=== PATIENT | female | born 1945 | race African-American/Black ===

== ENCOUNTER 2016-09-29 01:25 | Observation (INO) | payer MEDICARE, MEDICAID ==
[2016-09-29] VITALS (11 sets, daily range): BP systolic 133–187; BP diastolic 73–93; PULSE 49–61; RESP 18–22; TEMP 96.5–98.9; O2SAT 95–100
[~2016-09-29] VITALS: Ht 157.5 cm; Wt 100.0 kg
[~2016-09-29 01:25] MED LIST: ENAL20TA81 PO; FURO1TAB93 PO; IBUP400T20 PO; LEVO300T6 PO; LEXA20TA PO; LORT5TAB PO; NIFE1TAB85 PO; PIOG45 PO; RANI150 PO; VIST25CA PO; ZOCO40TA PO; [UNRECOGNIZED DRUG - REMARK]
[2016-09-29] MEDS ORDERED: SODIUM CHLORID 0.9% 500 ML INJ 500 ML IV ONE (01:45)
[2016-09-29] MEDS ORDERED: SODIUM CHLORIDE 0.9% FLUSH 10 ML FLUSH IVF PRN (01:45)
[2016-09-29] MEDS: NITROGLYCERIN 0.4 MG SL 25 TABS/BTL SL SCH ×4 (01:50→03:23)
--- NOTE | 2016-09-29 02:33 | PD ---
HPI Chief Complaint: Chest Pain Time Seen by Provider: 01:32 Travel History International Travel<30 days: No Contact w/Intl Traveler<30days: No Traveled to known affect area: No History of Present Illness HPI Patient is a 70-year-old female with history of hypertension, diabetes, hyperlipidemia, CVA with multiple complaints, patient reports that she has been having chest pain, reports that her chest pain goes from her left chest up to her neck. Patient reports that she does feel short of breath with her symptoms , she has had similar symptoms in the past. Patient reports that she is also having headache with her chest pain. Patient denies that this is the worst headache of her life and reports headache as mild and diffuse. Patient reports no vision changes or headache. Patient with no fevers or chills. Patient also with complaints of right foot pain, reports that she fell about one week ago and has pain to her right foot. PFSH Past Medical History Asthma: Yes Depression: Yes Cerebrovascular Accident: Yes Diabetes: Yes Hypertension: Yes Menopausal: Yes Past Surgical History Abdominal Surgery: Yes (IN 2003 AT [facility].) Ear Surgery: Yes (rt ear implant (MRI precaution)) Hysterectomy: Yes Social History Alcohol Use: Yes (OCCASSIONALLY.) Tobacco Use: Yes (TWO CIGARETTS PER DAY.) Substance Use: No Allergies-Medications (Allergen,Severity, Reaction): Coded Allergies: No Known Allergies (Verified , 09/29/16) Reported Meds & Prescriptions Reported Meds & Active Scripts Active Reported Fluoxetine (Fluoxetine HCl) 60 Mg Tab 60 Mg PO DAILY Enalapril (Enalapril Maleate) 20 Mg Tab 20 Mg PO DAILY Amlodipine (Amlodipine Besylate) 10 Mg Tab 10 Mg PO DAILY Gabapentin 300 Mg Cap 300 Mg PO TID Paroxetine (Paroxetine HCl) 40 Mg Tab 40 Mg PO DAILY Omeprazole 20 Mg Tab 20 Mg PO DAILY Levothyroxine (Levothyroxine Sodium) 50 Mcg Tab 50 Mcg PO DAILY Ranitidine (Ranitidine HCl) 150 Mg Tab 150 Mg PO DAILY Sertraline (Sertraline HCl) 50 Mg Tab 50 Mg PO DAILY Vitamin B-12 (Cyanocobalamin) 1,000 Mcg Tab 1,000 Mcg PO DAILY Pioglitazone (Pioglitazone HCl) 45 Mg Tab 45 Mg PO DAILY Trazodone (Trazodone HCl) 100 Mg Tab 100 Mg PO HS Enalapril (Enalapril Maleate) 20 Mg Tab 20 Mg PO DAILY Atorvastatin (Atorvastatin Calcium) 10 Mg Tab 10 Mg PO HS Naproxen 250 Mg Tab 250 Mg PO ONCE Review of Systems General / Constitutional: No: Fever Eyes: No: Visual changes HENT: Positive: Headaches Cardiovascular: Positive: Chest Pain or Discomfort Respiratory: Positive: Shortness of Breath Gastrointestinal: No: Abdominal Pain Genitourinary: No: Dysuria Musculoskeletal: Positive: Pain (right foot pain) Skin: No Rash Neurologic: No: Weakness Psychiatric: No: Depression Endocrine: No: Polydipsia Hematologic/Lymphatic: No: Easy Bruising Physical Exam Exam Limitations: Poor Historian Narrative GENERAL: Moderate distress SKIN: Focused skin assessment warm/dry. HEAD: Atraumatic. Normocephalic. EYES: Pupils equal and round. No scleral icterus. No injection or drainage. ENT: No nasal bleeding or discharge. Mucous membranes pink and moist. NECK: Trachea midline. No JVD. CARDIOVASCULAR: Regular rate and rhythm. No murmur appreciated. RESPIRATORY: No accessory muscle use. Clear to auscultation. Breath sounds equal bilaterally. GASTROINTESTINAL: Abdomen soft, non-tender, nondistended. Hepatic and splenic margins not palpable. MUSCULOSKELETAL: No obvious deformities. No clubbing. No cyanosis. No edema. Patient with pain on palpation to her right foot, no obvious deformities, no open fracture, no signs of any infection or cellulitis NEUROLOGICAL: Awake and alert. No obvious cranial nerve deficits. Motor grossly within normal limits. Normal speech. PSYCHIATRIC: Patient anxious on exam, overall a poor historian. Data Data Last Documented VS Vital Signs Date Time Temp Pulse Resp B/P Pulse Ox O2 Delivery O2 Flow Rate FiO2 09/29/16 01:28 61 18 147/93 99 Orders B-Type Natriuretic Peptide (09/29/16 01:45) Ckmb (Isoenzyme) Profile (09/29/16 01:45) Complete Blood Count With Diff (09/29/16 01:45) Comprehensive Metabolic Panel (09/29/16 01:45) Magnesium (Mg) (09/29/16 01:45) Prothrombin Time / Inr (Pt) (09/29/16 01:45) Act Partial Throm Time (Ptt) (09/29/16 01:45) Troponin I (09/29/16 01:45) Lipase (09/29/16 01:45) Chest, Single Ap (09/29/16 01:45) Ecg Monitoring (09/29/16 01:45) Iv Access Insert/Monitor (09/29/16 01:45) Oximetry (09/29/16 01:45) Sodium Chloride 0.9% Flush (Ns Flush) (09/29/16 01:45) Nitroglycerin Sl (Nitrostat Sl) (09/29/16 01:45) Sodium Chlorid 0.9% 500 Ml Inj (Ns 500 M (09/29/16 01:45) Foot, Complete (Ace4upt) (09/29/16 ) Ct Brain W/O Iv Contrast(Rout) (09/29/16 01:45) Fiberglass Short Leg Splint Ad (09/29/16 ) CKMB (09/29/16 02:19) CKMB% (09/29/16 02:19) Splinting (09/29/16 ) Ketorolac Inj (Toradol Inj) (09/29/16 03:15) Admit Order (Ed Use Only) (09/29/16 03:20) Labs Laboratory Tests Test 09/29/16 02:19 White Blood Count 6.4 TH/MM3 Red Blood Count 4.46 MIL/MM3 Hemoglobin 12.0 GM/DL Hematocrit 37.4 % Mean Corpuscular Volume 83.8 FL Mean Corpuscular Hemoglobin 27.0 PG Mean Corpuscular Hemoglobin 32.2 % Concent Red Cell Distribution Width 15.5 % Platelet Count 192 TH/MM3 Mean Platelet Volume 9.1 FL Neutrophils (%) (Auto) 47.1 % Lymphocytes (%) (Auto) 41.3 % Monocytes (%) (Auto) 8.6 % Eosinophils (%) (Auto) 1.9 % Basophils (%) (Auto) 1.1 % Neutrophils # (Auto) 3.0 TH/MM3 Lymphocytes # (Auto) 2.6 TH/MM3 Monocytes # (Auto) 0.5 TH/MM3 Eosinophils # (Auto) 0.1 TH/MM3 Basophils # (Auto) 0.1 TH/MM3 CBC Comment DIFF FINAL Differential Comment Prothrombin Time 11.1 SEC Prothromb Time International 1.0 RATIO Ratio Activated Partial 28.7 SEC Thromboplast Time Sodium Level 142 MEQ/L Potassium Level 3.6 MEQ/L Chloride Level 106 MEQ/L Carbon Dioxide Level 26.3 MEQ/L Anion Gap 10 MEQ/L Blood Urea Nitrogen 13 MG/DL Creatinine 0.71 MG/DL Estimat Glomerular Filtration 98 ML/MIN Rate Random Glucose 80 MG/DL Calcium Level 8.9 MG/DL Magnesium Level 1.8 MG/DL Total Bilirubin 0.3 MG/DL Aspartate Amino Transf 25 U/L (AST/SGOT) Alanine Aminotransferase 21 U/L (ALT/SGPT) Alkaline Phosphatase 115 U/L Total Creatine Kinase 270 U/L Creatine Kinase MB 1.2 NG/ML Creatine Kinase MB % 0.4 % Troponin I 0.03 NG/ML B-Type Natriuretic Peptide 58 PG/ML Total Protein 7.7 GM/DL Albumin 3.5 GM/DL Lipase 272 U/L MDM Medical Decision Making Medical Screen Exam Complete: Yes Emergency Medical Condition: Yes Interpretation(s) EKG at 0135: Sinus bradycardia at 52 beats for minute, QT/QTc 36/417, no acute ST or T-wave changes Vital Signs Date Time Temp Pulse Resp B/P Pulse Ox O2 Delivery O2 Flow Rate FiO2 09/29/16 01:28 61 18 147/93 99 Differential Diagnosis ACS, arrhythmia, nausea, intracranial hemorrhage, electrolyte abnormality, foot fracture, right foot contusion Narrative Course Patient is a 70-year-old female who presents to emergency room with complaints of chest pain. Patient reports that she has been having left-sided chest pain which radiates her neck, reports that she has been feeling short of breath and diaphoretic her symptoms. Patient was placed on a lunchroom monitor upon arrival to the emergency room, an EKG was obtained, patient with no acute changes. Patient with ordered sublingual nitroglycerin if this helps her chest pain. Will continue to observe patient on lunchroom monitor Last Impressions Chest X-Ray 09/29/16 0145 Signed Impressions: Service Date/Time: Thursday, September 29, 2016 01:57 - CONCLUSION: Slight cardiomegaly. Mitzy Guajardo MD Foot X-Ray 09/29/16 0000 Signed Impressions: Service Date/Time: Thursday, September 29, 2016 02:00 - CONCLUSION: First proximal phalangeal fracture and second metatarsal fracture. Mitzy Guajardo MD Patient with first proximal phalanx fracture as well as second metatarsal fracture, patient in splint. Patient understands need to follow-up with orthopedic surgery as outpatient. CT of the head ordered as she did have a fall 1 week ago causing a fracture to her right foot, will evaluate for intracranial hemorrhage given her recent fall. Last Impressions Head CT 09/29/16144 Signed Impressions: Service Date/Time: Thursday, September 29, 2016 02:28 - CONCLUSION: Unremarkable study. Mitzy Guajardo MD Chest X-Ray 09/29/16144 Signed Impressions: Service Date/Time: Thursday, September 29, 2016 01:57 - CONCLUSION: Slight cardiomegaly. Mitzy Guajardo MD Foot X-Ray 09/29/16 0000 Signed Impressions: Service Date/Time: Thursday, September 29, 2016 02:00 - CONCLUSION: First proximal phalangeal fracture and second metatarsal fracture. Mitzy Guajardo MD Patient took 1 sublingual nitroglycerin which relieved her pain. Plan to observe her in the chest pain unit. Patient will follow-up with orthopedic surgery as outpatient for her metatarsal fracture. Diagnosis Primary Impression: Chest pain Qualified Code: R07.9 - Chest pain, unspecified type Additional Impressions: Phalanx fracture, foot Metatarsal stress fracture of right foot Reva Thomas DO September 29, 2016 02:33
--- NOTE | 2016-09-29 02:33 | RADRPT ---
EXAM DATE/TIME: 09/29/2016 01:57 [facility] COMPARISON: No previous studies available for comparison. INDICATIONS : Chest pain. MEDICAL HISTORY : None. SURGICAL HISTORY : None. ENCOUNTER: Initial ACUITY: 1 day PAIN SCORE: 5/10 LOCATION: Left chest FINDINGS: Slight cardiomegaly is seen. Lungs are clear. CONCLUSION: Slight cardiomegaly. Mitzy Guajardo MD on September 29, 2016 at 2:31 Board Certified Radiologist. This report was verified electronically.
[2016-09-29 02:34] LABS: BASOPHIL # 0.1 TH/MM3 (0-0.2); BASOPHIL % 1.1 % (0.0-2.0); EOSINOPHIL # 0.1 TH/MM3 (0-0.4); EOSINOPHIL % 1.9 % (0.0-4.0); HEMATOCRIT 37.4 % (35.0-46.0); HEMO FLAGS DIFF FINAL; LYMPH % 41.3 % (9.0-44.0); LYMPHOCYTE # 2.6 TH/MM3 (1.0-4.8); MEAN CELL VOLUME 83.8 FL (80.0-100.0); MEAN CORPUSCULAR HGB CONC 32.2 % (32.0-36.0); MONO % 8.6 % (0.0-8.0); NEUT % 47.1 % (16.0-70.0); PLATELET COUNT 192 TH/MM3 (150-450); RED BLOOD COUNT 4.46 MIL/MM3 (4.00-5.30); RED CELL DISTRIBUTION WIDTH 15.5 % (11.6-17.2); WHITE BLOOD COUNT 6.4 TH/MM3 (4.0-11.0)
[2016-09-29] MEDS ORDERED: TRAZ100T4 PO (02:34)
[2016-09-29] MEDS ORDERED: VITA10002 PO (02:34)
[2016-09-29] MEDS ORDERED: NAPR250T PO (02:34)
[2016-09-29] MEDS ORDERED: FLUO60TA PO (02:34)
[2016-09-29] MEDS ORDERED: LEVO50TA4 PO (02:34)
[2016-09-29] MEDS ORDERED: GABA300C5 PO (02:34)
[2016-09-29] MEDS ORDERED: RANI150T PO (02:34)
[2016-09-29] MEDS ORDERED: ATOR10TA15 PO (02:34)
[2016-09-29] MEDS ORDERED: PARO40TA2 PO (02:34)
[2016-09-29] MEDS ORDERED: ENAL20TA PO ×2 (02:34)
[2016-09-29] MEDS ORDERED: AMLO10TA2 PO (02:34)
[2016-09-29] MEDS ORDERED: PIOG45TA3 PO (02:34)
[2016-09-29] MEDS ORDERED: OMEP20TA PO (02:34)
[2016-09-29] MEDS ORDERED: SERT-132 PO (02:34)
--- NOTE | 2016-09-29 02:35 | RADRPT ---
EXAM DATE/TIME: 09/29/2016 02:00 [facility] COMPARISON: No previous studies available for comparison. INDICATIONS : Entire right foot pain. MEDICAL HISTORY : None. SURGICAL HISTORY : None. ENCOUNTER: Initial ACUITY: 1 day PAIN SCORE: 9/10 LOCATION: Right foot FINDINGS: There is an avulsion fracture of the first proximal phalanx which extends intra-articularly and there is a nondisplaced fracture of the second distal metatarsal bone is slightly angulated. CONCLUSION: First proximal phalangeal fracture and second metatarsal fracture. Mitzy Guajardo MD on September 29, 2016 at 2:32 Board Certified Radiologist. This report was verified electronically.
[2016-09-29 02:41] LABS: APTT (PATIENT) 28.7 SEC (24.3-30.1); PROTHROMBIN TIME - PATIENT 11.1 SEC (9.8-11.6)
[2016-09-29 02:55] LABS: ALT (GPT) 21 U/L (10-53); ANION GAP 10 MEQ/L (5-15); AST (GOT) 25 U/L (15-37); BICARBONATE 26.3 MEQ/L (21.0-32.0); BLOOD UREA NITROGEN 13 MG/DL (7-18); CHLORIDE 106 MEQ/L (98-107); GLOMERULAR FILTRATION RATE 98 ML/MIN (>89); MAGNESIUM 1.8 MG/DL (1.5-2.5); POTASSIUM 3.6 MEQ/L (3.5-5.1); SODIUM (NA) 142 MEQ/L (136-145)
[2016-09-29 02:59] LABS: ALKALINE PHOSPHATASE 115 U/L (45-117); CREATINE KINASE 270 U/L (26-192); TOTAL BILIRUBIN ADULT 0.3 MG/DL (0.2-1.0)
--- NOTE | 2016-09-29 03:05 | RADRPT ---
EXAM DATE/TIME: 09/29/2016 02:28 [facility] COMPARISON: CT BRAIN W/O CONTRAST, November 19, 2009, 4:29. INDICATIONS : Cephalgia. RADIATION DOSE: 53.66 CTDIvol (mGy) MEDICAL HISTORY : Cerebrovascular disease. Hypertension. Diabetes. SURGICAL HISTORY : Right cochlear implant. ENCOUNTER: Initial ACUITY: 1 day PAIN SCALE: 5/10 LOCATION: cranial TECHNIQUE: Multiple contiguous axial images were obtained of the head. Using automated exposure control and adj ustment of the mA and/or kV according to patient size, radiation dose was kept as low as reasonably a chievable to obtain optimal diagnostic quality images. FINDINGS: There is no evidence for intracranial hemorrhage, mass effect, mass lesions, edema, or extra-axial fl uid collections. The visualized bony structures appear intact. The ventricles are normal size for t he patient's age. There are no signs of acute infarction for technique. Right cochlear implant is id entified. CONCLUSION: Unremarkable study. Mitzy Guajardo MD on September 29, 2016 at 3:03 Board Certified Radiologist. This report was verified electronically.
[2016-09-29 03:10] LABS: CKMB 1.2 NG/ML (0.5-3.6)
[2016-09-29] MEDS ORDERED: KETOROLAC TROMETHAMINE 30 MG/ML (IVP) VIAL IV PUSH ONE (03:15)
[2016-09-29 06:24] LABS: CKMB 1.3 NG/ML (0.5-3.6)
--- NOTE | 2016-09-29 09:53 | HHI.HP ---
HPI Primary Care Physician Shilo Vázquez Chief Complaint Chest pain History of Present Illness 70-year-old female with pertinent history of hypertension, diabetes, and hyperlipidemia presents to emergency room for further evaluation of chest pain. Patient is from [place] and speaks Singaporean. [employer] Analyst utilized for interview. Onset of chest pain 1 week ago. Location substernal described as severe pressure rated 5/10. Radiated to her left neck. No associated symptoms. No known precipitating or relieving factors. Patient is a poor historian. Review of Systems General: No fatigue,weakness, fever, chills, recent illness, recent travel, or change in appetite HEENT: No CHOU, no vision changes, no nasal congestion or drainage CV: As stated above. Denies any current chest pain or pressure. RESP: No SOB, cough, wheeze, or recent URI. GI: No nausea, vomiting, bowel changes, diarrhea, constipation, pain. No change in appetite, no unintentional weight gain or weight loss EXT: No lower leg edema, no paraesthesias MS: No discomfort or change in ROM NEURO: No change in memory, dizziness, difficulty with balance, LOC, motor/ sensory deficits PSYCH: No anxiety. History of depression, endorses she is sad at times. No suicidal ideation. Past Family Social History Allergies: Coded Allergies: No Known Allergies (Verified , 09/29/16) Past Medical History Hypertension, diabetes, hyperlipidemia, asthma, depression, CVA, Past Surgical History Hysterectomy Reported Medications Active Reported Fluoxetine (Fluoxetine HCl) 60 Mg Tab 60 Mg PO DAILY Enalapril (Enalapril Maleate) 20 Mg Tab 20 Mg PO DAILY Amlodipine (Amlodipine Besylate) 10 Mg Tab 10 Mg PO DAILY Gabapentin 300 Mg Cap 300 Mg PO TID Paroxetine (Paroxetine HCl) 40 Mg Tab 40 Mg PO DAILY Omeprazole 20 Mg Tab 20 Mg PO DAILY Levothyroxine (Levothyroxine Sodium) 50 Mcg Tab 50 Mcg PO DAILY Ranitidine (Ranitidine HCl) 150 Mg Tab 150 Mg PO DAILY Sertraline (Sertraline HCl) 50 Mg Tab 50 Mg PO DAILY Vitamin B-12 (Cyanocobalamin) 1,000 Mcg Tab 1,000 Mcg PO DAILY Pioglitazone (Pioglitazone HCl) 45 Mg Tab 45 Mg PO DAILY Trazodone (Trazodone HCl) 100 Mg Tab 100 Mg PO HS Enalapril (Enalapril Maleate) 20 Mg Tab 20 Mg PO DAILY Atorvastatin (Atorvastatin Calcium) 10 Mg Tab 10 Mg PO HS Naproxen 250 Mg Tab 250 Mg PO ONCE Active Ordered Medications Current Medications Medications (Trade) Dose Ordered Sig/Alissa Route Start Time Stop Time Status Last Admin (NS Flush) 2 ml UNSCH PRN IVF 09/29/16 01:45 Family History Endorses family history of cardiovascular disease although not specific. Social History Known hypertension, diabetes, and hyperlipidemia. Moved from [place] approximately 10 years ago. Lives independently. Singaporean speaking. Past cardiac testing Patient is a poor historian, believes she was at a hospital last month for similar chest discomfort. She cannot remember what testing, if any, was completed. She cannot remember what hospital she was at last week. States in 2016 she was told she needed open heart surgery, however is illiterate and was unable to read discharge instructions or events that transpired during that time. Physical Exam Vital Signs Vital Signs Date Time Temp Pulse Resp B/P Pulse Ox O2 Delivery O2 Flow Rate FiO2 09/29/16 08:00 96.5 49 20 169/74 97 09/29/16 06:28 60 09/29/16 06:27 98.0 54 18 167/74 96 09/29/16 04:28 54 18 150/90 99 Room Air 09/29/16 03:39 100 09/29/16 03:24 100 Room Air 09/29/16 01:28 61 18 147/93 99 Physical Exam GENERAL: Alert WN, WD, NAD, pleasant, obese, Armenian female HEAD: NC, AT EYES: Sclera clear, conjunctiva without injection, pupils equal and round ENT: Mucous membranes pink and moist, no nasal discharge or bleeding NECK: Supple, no masses, trachea midline CV: RRR, without murmur, rub, gallop, no JVD, S1-S2 no S3-S4. RESP: Clear lungs throughout bilateral, no crackles, wheeze, rhonchi, symmetrical chest rise, nonlabored, able to speak in full sentences ABD: Soft, NT, ND, no masses, positive bowel tones, obese BACK: No CVAT, no scoliosis EXT: Pulses +24, no dependent edema MS: Normal tone 4 extremities, nontender, no obvious deformities, full range of motion NEURO: CN II through CN XII grossly intact, motor strength 5/5, gait WNL PSYCH: A+O 3, pleasant affect, appropriate speech, appropriate mood and affect , insight and judgment, tearful at times during interview SKIN: Normal turgor, normal texture, no lesions, no rashes, brisk cap refill, even hair distribution Laboratory Laboratory Tests Test 09/29/16 09/29/16 02:19 05:08 White Blood Count 6.4 Red Blood Count 4.46 Hemoglobin 12.0 Hematocrit 37.4 Mean Corpuscular Volume 83.8 Mean Corpuscular Hemoglobin 27.0 Mean Corpuscular Hemoglobin 32.2 Concent Red Cell Distribution Width 15.5 Platelet Count 192 Mean Platelet Volume 9.1 Neutrophils (%) (Auto) 47.1 Lymphocytes (%) (Auto) 41.3 Monocytes (%) (Auto) 8.6 Eosinophils (%) (Auto) 1.9 Basophils (%) (Auto) 1.1 Neutrophils # (Auto) 3.0 Lymphocytes # (Auto) 2.6 Monocytes # (Auto) 0.5 Eosinophils # (Auto) 0.1 Basophils # (Auto) 0.1 CBC Comment DIFF FINAL Differential Comment Prothrombin Time 11.1 Prothromb Time International 1.0 Ratio Activated Partial 28.7 Thromboplast Time Sodium Level 142 Potassium Level 3.6 Chloride Level 106 Carbon Dioxide Level 26.3 Anion Gap 10 Blood Urea Nitrogen 13 Creatinine 0.71 Estimat Glomerular Filtration 98 Rate Random Glucose 80 Calcium Level 8.9 Magnesium Level 1.8 Total Bilirubin 0.3 Aspartate Amino Transf 25 (AST/SGOT) Alanine Aminotransferase 21 (ALT/SGPT) Alkaline Phosphatase 115 Total Creatine Kinase 270 230 Creatine Kinase MB 1.2 1.3 Creatine Kinase MB % 0.4 0.6 Troponin I 0.03 0.06 B-Type Natriuretic Peptide 58 Total Protein 7.7 Albumin 3.5 Lipase 272 Result Diagram: 09/29/1621809/29/16218 Imaging Last Impressions Head CT 09/29/16144 Signed Impressions: Service Date/Time: Thursday, September 29, 2016 02:28 - CONCLUSION: Unremarkable study. Mitzy Guajardo MD Chest X-Ray 09/29/16144 Signed Impressions: Service Date/Time: Thursday, September 29, 2016 01:57 - CONCLUSION: Slight cardiomegaly. Mitzy Guajardo MD Foot X-Ray 09/29/16 0000 Signed Impressions: Service Date/Time: Thursday, September 29, 2016 02:00 - CONCLUSION: First proximal phalangeal fracture and second metatarsal fracture. Mitzy Guajardo MD Course EKGs 3 EKGs show normal sinus bradycardia with sinus arrhythmia, normal axis, no ST or T-segment changes Assessment and Plan Assessment and Plan #[facility]. Seen and evaluated by Dr. Thomas Valentin. 2 sets of cardiac enzymes and EKGs have been completed at this time Second troponin 0.06. If third troponin increases will consult hospitalist and on-call career technical supervisor. #2 Hypertensioncontinue enalapril, amlodipine #3 Hypothyroidismcontinue levothyroxine #4 GERDcontinue omeprazole #5 Diabeteshold pioglitazone, SSI low dose Poonam Ordonez September 29, 2016 09:53
[2016-09-29] MEDS ORDERED: ENALAPRIL MALEATE 10 MG TAB PO SCH (10:00)
[2016-09-29 10:40] LABS: CKMB 1.4 NG/ML (0.5-3.6)
[2016-09-29] MEDS: LEVOTHYROXINE SODIUM 50 MCG TAB PO SCH (12:03)
[2016-09-29] MEDS: PANTOPRAZOLE SOD 20 MG DELAYED RELEASE TAB PO SCH (12:03)
[2016-09-29] MEDS: GABAPENTIN 300 MG CAP PO SCH ×2 (12:03→17:03)
[2016-09-29] MEDS ORDERED: GLUCAGON 1 MG/ML VIAL OTHER PRN (12:30)
[2016-09-29] MEDS ORDERED: DEXTROSE 50% IN WATER 50 ML VIAL(D50) IV PRN (12:30)
--- NOTE | 2016-09-29 13:07 | HHI.PR ---
Subjective Remarks resting comfortably with no distress. still with some chest pain. d/w the RN and . Objective Vitals Vital Signs Date Time Temp Pulse Resp B/P Pulse Ox O2 Delivery O2 Flow Rate FiO2 09/29/16 12:00 96.5 50 22 181/78 95 09/29/16 08:00 96.5 49 20 169/74 97 09/29/16 06:28 60 09/29/16 06:27 98.0 54 18 167/74 96 09/29/16 04:28 54 18 150/90 99 Room Air 09/29/16 03:39 100 09/29/16 03:24 100 Room Air 09/29/16 01:28 61 18 147/93 99 Result Diagram: 09/29/16 0219 09/29/16 0219 Imaging Last Impressions Head CT 09/29/16 014 Signed Impressions: Service Date/Time: Thursday, September 29, 2016 02:28 - CONCLUSION: Unremarkable study. Mitzy Guajardo MD Chest X-Ray 09/29/16 0145 Signed Impressions: Service Date/Time: Thursday, September 29, 2016 01:57 - CONCLUSION: Slight cardiomegaly. Mitzy Guajardo MD Foot X-Ray 09/29/16 0000 Signed Impressions: Service Date/Time: Thursday, September 29, 2016 02:00 - CONCLUSION: First proximal phalangeal fracture and second metatarsal fracture. Mitzy Guajardo MD Objective Remarks GENERAL: This is a well-nourished, well-developed patient, in no apparent distress. CARDIOVASCULAR: Regular rate and regular rhythm without murmurs, gallops, or rubs. RESPIRATORY: Clear to auscultation. Breath sounds equal bilaterally. No wheezes , rales, or rhonchi. GASTROINTESTINAL: Abdomen soft, non-tender, nondistended. Normal, active bowel sounds MUSCULOSKELETAL: right foot covered with clean dressing. NEURO: Alert & Oriented x4 to person, place, time, situation. Moves all ext x4 Medications and IVs Current Medications Sodium Chloride (NS Flush) 2 ml UNSCH PRN IVF FLUSH AFTER USING IV ACCESS; Start 09/29/16 at 01:45 Nitroglycerin 0.4 mg 0.4 mg Q5M SL Last administered on 09/29/16 02:22; Start 09/29/16 at 01:45; Stop 09/29/16 at 01:56; Status DC Sodium Chloride (NS 500 ml Inj) 500 ml @ 500 mls/hr ONCE ONCE IV Last administered on 09/29/16 02:41; Start 09/29/16 at 01:45; Stop 09/29/16 at 02:44 ; Status DC Ketorolac Tromethamine (Toradol Inj) 15 mg ONCE ONCE IV PUSH Last administered on 09/29/16 03:26; Start 09/29/16 at 03:15; Stop 09/29/16 at 03:16 ; Status DC Amlodipine Besylate (Norvasc) 10 mg DAILY PO Last administered on 09/29/16 12: 04; Start 09/29/16 at 10:00 Atorvastatin Calcium (Lipitor) 10 mg HS PO ; Start 09/29/16 at 21:00 Enalapril Maleate (Vasotec) 20 mg DAILY PO Last administered on 09/29/16 12:03 ; Start 09/29/16 at 10:00 Gabapentin (Neurontin) 300 mg TID PO Last administered on 09/29/16 12:03; Start 09/29/16 at 13:00 Levothyroxine Sodium (Synthroid) 50 mcg DAILY@0600 PO Last administered on 09/29 12:03; Start 09/29/16 at 10:45 Pantoprazole Sodium (Protonix) 20 mg DAILY PO Last administered on 09/29/16 12 :03; Start 09/29/16 at 10:45 Dextrose (D50w (Vial) Inj) 50 ml UNSCH PRN IV HYPOGLYCEMIA-SEE COMMENTS; Start 09/29/16 at 12:30 Glucagon (Glucagon Inj) 1 mg UNSCH PRN OTHER HYPOGLYCEMIA-SEE COMMENTS; Start 09/29/16 at 12:30 Insulin Aspart (NovoLOG SUPPLEMENTAL SCALE) 1 ACHS SLIDING SCALE SQ ; Start at 16:00 A/P Assessment and Plan A/P - chest pain with minimal elevation of troponin cardiology consulted- plan for stress test today. -hypertension- uncontrolled; on amlodipine and enalapril- vasotec as needed. will monitor and adjust the regimen as needed. -right first phalyngeal and second metatarsal fracture- continue with pain control- podiatry follow-up as outpatient. d/w the RN and . Nicolle Valle MD September 29, 2016 13:07
[2016-09-29] MEDS ORDERED: ENALAPRILAT 1.25 MG/ML VIAL IV PUSH PRN (13:15)
--- NOTE | 2016-09-29 13:40 | EKG ---
Date Performed: 09/29/2016 Time Performed: 04:59:22 PTAGE: 70 years EKG: SINUS BRADYCARDIA WITH SINUS ARRHYTHMIA BORDERLINE ECG PREVIOUS TRACING : 11/19/2009 05.50 Since previous tracing, no significant change noted DOCTOR: Thomas Valentin Interpretating Date/Time 09/29/2016 13:40:05
--- NOTE | 2016-09-29 13:41 | EKG ---
Date Performed: 09/29/2016 Time Performed: 01:35:26 PTAGE: 70 years EKG: SINUS BRADYCARDIA BORDERLINE ECG NO PREVIOUS TRACING DOCTOR: Thomas Valentin Interpretating Date/Time 09/29/2016 13:41:02
--- NOTE | 2016-09-29 15:01 | MB ---
cc: JOVANI ALEXANDER DO DATE OF CONSULTATION: September 29, 2016 REASON FOR CONSULTATION Chest pain. HISTORY OF PRESENT ILLNESS Carla Oreilly is a pleasant Kazakh-speaking 70-year-old female who presents to [facility] on September 29, 2016 for a myriad of symptoms. The patient is strictly Kazakh-speaking and so a fluent Kazakh-speaking nurse was used to interpret. The patient is an extremely poor historian and is difficult to get information from because she goes tangential from her symptoms to tell you about years ago what happened, which has nothing to do with her current symptoms. Part of her symptoms included chest pain. The difficult thing is she keeps interchanging chest pain and palpitations as the same thing. She has had this for the past week to week and a half. She is unable to tell me if it is pressure, stabbing but it is just pain mostly on the left side of her chest. She does not believe that she has had this before. She denies diaphoresis or shortness of breath with this. Pain appears to last for hours. Along with her symptom she also complains of a headache. PAST MEDICAL HISTORY 1. Hypertension. 2. Diabetes mellitus. 3. Hyperlipidemia. 4. Asthma. 5. Depression. 6. CVA. PAST SURGICAL HISTORY 1. Hysterectomy 2. Cardiac catheterization (2012 at [facility]) no significant CAD ALLERGIES NO KNOWN DRUG ALLERGIES. MEDICATION 1. Enalapril 20 mg daily. 2. Gabapentin 300 mg t.i.d. 3. Norvasc 10 mg daily. 4. Ranitidine 150 mg daily. 5. Lipitor 10 mg every night. 6. Naproxen 250 mg as needed. 7. Omeprazole 20 mg daily. 8. Pioglitazone 45 mg daily. 9. Synthroid 50 mcg daily. 10. Per the records the patient is on Fluoxetine 60 mg daily. 11. Paroxetine 40 mg daily. 12. Sertraline 50 mg daily. FAMILY HISTORY She does not appear to have premature coronary artery disease or sudden cardiac within the family. SOCIAL HISTORY Moved from [place] approximately 10 years ago. Lives independently. REVIEW OF SYSTEMS A 14-systems were reviewed including osteopathic pertinent positives and negatives above, otherwise negative. PHYSICAL EXAMINATION VITAL SIGNS: Temperature 96.5, heart rate 50, blood pressure 181/78, respirations 20, pulse ox 95% on room air. GENERAL: The patient appears well, alert and awake. She does appear to be somewhat tangential on her stories. HEENT: Extraocular muscles intact. Mucous membranes moist. NECK: Supple. No JVD at 45 degrees. No carotid bruits heard bilaterally. HEART: Heart is regular rhythm but bradycardic. A 1/6 crescendo-decrescendo murmur noted at the right sternal border. LUNGS: Lungs are clear to auscultation bilaterally. No wheezes, rales or rhonchi. ABDOMEN: Soft, nontender, nondistended. No organomegaly noted. EXTREMITIES: Show trace edema bilaterally. NEUROLOGIC: No focal deficits. SKIN: Skin is warm, dry and intact. OSTEOPHATIC: Mild lordosis. No kyphoscoliosis or paraspinal tender points. LABORATORY FINDINGS Hemoglobin 12.0, hematocrit 37.4, platelets 192. Potassium 3.6, BUN 13, creatinine 0.71, troponin 0.07. BNP 58. ELECTROCARDIOGRAM (September 29, 2016 at 0950) sinus bradycardia with sinus arrhythmia, no acute ST-T wave changes. IMPRESSION 1. Atypical chest pain. 2. Minimal elevation of troponins. 3. Accelerated hypertension. 4. Hypothyroidism. 5. Gastroesophageal reflux disease. 6. Diabetes mellitus. RECOMMENDATIONS 1. I spoke to Ms. Oreilly extensively about the elevation of her troponins and whether she would like to undergo an ischemic evaluation versus medical management. She has difficulties making this decision and asks me to discuss with her son. I called her son and we discussed risks, benefits and alternatives of ischemic evaluation versus medical management. He is unsure which he would prefer for her but will elect for ischemic evaluation. 2. I believe with her atypical chest pain and nonspecific troponin that she should undergo pharmacologic nuclear stress testing. Her minimal elevation in troponin may be due to accelerated hypertension. 3. Will watch her on telemetry as she does have a question of palpitations. 4. We will try to increase her medications to help with her elevated blood pressure. 5. Will check a 2-D echo to look at her overall left ventricular function, cardiac structure and possible valvulopathies. 6. We will add aspirin 81 mg to her medical regimen as she does have a history of PAD and CVA. 7. There was a question about the patient previously thinking that she needed open heart surgery, but appears that there was a miscommunication as her previous cardiac catheterization showed minimal CAD. Thank you for allowing me to see Carla Oreilly, if there are any questions, please do not hesitate to call. Jovani Alexander DO VGP/TLL /2:08 PM /2:32 PM [facility]Boy
[2016-09-29] MEDS ORDERED: REGADENOSON INJ 0.4 MG/5 ML SYR ONE (15:08)
[2016-09-29] MEDS: INSULIN ASPART SUPPLEMENTAL SCALE SQ SCH ×2 (16:00→20:45)
--- NOTE | 2016-09-29 16:39 | RADRPT ---
EXAM DATE/TIME: 09/29/2016 14:45 [place] COMPARISON: No previous studies available for comparison. INDICATIONS : Substernal chest pain for 1 day. Cardiomegaly. Angina. DOSE: 30.6 mCi Tc99m Myoview at stress. 11.0 mCi Tc99m Myoview at rest. 0.4 mg Lexiscan STRESS SYMPTOMS: Dyspnea. EJECTION FRACTION: 57% MEDICAL HISTORY : Hypertension. Diabetes mellitus type 2. Asthma. SURGICAL HISTORY : Hysterectomy. ENCOUNTER: Initial ACUITY: 1 week PAIN SCALE: 5/10 LOCATION: Substernal chest TECHNIQUE: The patient underwent pharmacologic stress with infusion of prescribed dose. Continuous ECG tracing was monitored during stress. Gated SPECT imaging was performed after stress and conventional SPECT i maging was performed at rest. The examination was performed on a SPECT/CT scanner, both attenuation and non-corrected datasets were reviewed. FINDINGS: DISTRIBUTION: The maximum perfused segment at stress is in the septal wall. PERFUSION STUDY: The pattern of perfusion at stress is within normal limits. GATED STUDY: There is intact wall motion and thickening without hypokinetic or dyskinetic segments. CONCLUSION: Normal examination. RISK CATEGORY: Low (<1% Annual Mortality Rate) Mode Jacob MD on September 29, 2016 at 16:35 Board Certified Radiologist. This report was verified electronically.
[2016-09-29] MEDS: ASPIRIN 81 MG CHEW TAB CHEW SCH (17:03)
--- NOTE | 2016-09-29 18:45 | PD.CARD.PN ---
Assessment and Plan Assessment and Plan Stress test showing no significant ischemia. Patient and family were told about the results. Will plan to watch over night for possible arrhythmias, if no arrhythmias will plan for possible discharge. Jovani Dietrich DO September 29, 2016 18:45
--- NOTE | 2016-09-29 19:19 | EKG ---
Date Performed: 09/29/2016 Time Performed: 09:50:10 PTAGE: 70 years EKG: SINUS BRADYCARDIA WITH SINUS ARRHYTHMIA BORDERLINE ECG Compared to prior tracing no signifi cant change DOCTOR: Maurisio Michaud Interpretating Date/Time 09/29/2016 19:18:37
[2016-09-29] MEDS: ATORVASTATIN 10 MG TAB PO SCH (20:45)
[2016-09-29] MEDS: ENALAPRIL MALEATE 10 MG TAB PO SCH (20:45)
[2016-09-30] VITALS (10 sets, daily range): BP systolic 120–164; BP diastolic 58–84; PULSE 49–64; RESP 16–20; TEMP 97.7–98.7; O2SAT 92–100
[2016-09-30] MEDS: ACETAMINOPHEN 500 MG CPLT PO PRN ×3 (00:31→22:29)
[2016-09-30] MEDS: LEVOTHYROXINE SODIUM 50 MCG TAB PO SCH (04:50)
[2016-09-30] MEDS: INSULIN ASPART SUPPLEMENTAL SCALE SQ SCH ×4 (05:56→21:00)
--- NOTE | 2016-09-30 08:47 | PD.CARD.PN ---
Subjective Subjective Remarks Seen with Colin Monahan and clinical business analyst No chest pain, no arrhythmias on telemetry Patient appears to have underlying dementia and depression, extremely emotional this morning Objective Medications Current Medications Medications (Trade) Dose Ordered Sig/Alissa Route Start Time Stop Time Status Last Admin (NS Flush) 2 ml UNSCH PRN IVF 09/29/16 01:45 (Norvasc) 10 mg DAILY PO 09/29/16 10:00 09/29/16 12:04 (Lipitor) 10 mg HS PO 09/29/16 21:00 09/29/16 20:45 (Neurontin) 300 mg TID PO 09/29/16 13:00 09/29/16 17:03 (Synthroid) 50 mcg DAILY@0600 PO 09/29/16 10:45 09/30/16 04:50 (Protonix) 20 mg DAILY PO 09/29/16 10:45 09/29/16 12:03 (D50w (Vial) Inj) 50 ml UNSCH PRN IV 09/29/16 12:30 (Glucagon Inj) 1 mg UNSCH PRN OTHER 09/29/16 12:30 (Vasotec Inj) 1.25 mg Q8H PRN IV PUSH 09/29/16 13:15 09/29/16 17:03 (Aspirin Chew) 81 mg DAILY CHEW 09/29/16 14:30 09/29/16 17:03 (Vasotec) 20 mg BID PO 09/29/16 21:00 09/29/16 20:45 (Tylenol) 500 mg Q4H PRN PO 09/30/16 00:30 09/30/16 04:50 (Actos) 45 mg DAILY PO 09/30/16 09:00 UNV Non-Formulary Medication 150 mg DAILY PO 09/30/16 09:00 UNV Vital Signs / I&O Vital Signs Date Time Temp Pulse Resp B/P Pulse Ox O2 Delivery O2 Flow Rate FiO2 09/30/16 07:58 64 20 164/84 100 09/30/16 05:06 98.5 50 17 140/67 100 09/30/16 00:00 98.7 59 20 161/71 100 09/29/16 20:11 98.9 55 20 133/92 98 09/29/16 18:05 58 09/29/16 16:30 96.8 49 22 187/73 100 09/29/16 12:00 96.5 50 22 181/78 95 Physical Exam GENERAL: NAD SKIN: Warm and dry. HEAD: Atraumatic. Normocephalic. EYES: Pupils equal and round. No scleral icterus. No injection or drainage. ENT: No nasal bleeding or discharge. Mucous membranes pink and moist. NECK: Trachea midline. No JVD. CARDIOVASCULAR: Regular rate and rhythm. RESPIRATORY: No accessory muscle use. Clear to auscultation. Breath sounds equal bilaterally. GASTROINTESTINAL: Abdomen soft, non-tender, nondistended. Hepatic and splenic margins not palpable. MUSCULOSKELETAL: Trace edema NEUROLOGICAL: Awake and alert. No obvious cranial nerve deficits. Motor grossly within normal limits. Five out of 5 muscle strength in the arms and legs. Normal speech. PSYCHIATRIC: Appropriate mood and affect; insight and judgment normal. Laboratory Laboratory Tests Test 09/29/16 09:23 Total Creatine Kinase 229 U/L Creatine Kinase MB 1.4 NG/ML Creatine Kinase MB % 0.6 % Troponin I 0.07 NG/ML Assessment and Plan Problem List: (1) Chest pain (2) Phalanx fracture, foot Assessment and Plan 1) Pharm Nuclear stress test negative for ischemia 2) No arrhythmias on telemetry, mild bradycardia 3) Cardiovascularly stable for discharge 4) Appears to need follow up for depression as this may be the underlying cause of myriad of problems 5) Will see PRN, call with questions Problem Qualifiers (1) Chest pain: Qualified Code: R07.9 - Chest pain, unspecified type (2) Phalanx fracture, foot: Jovani Dietrich DO September 30, 2016 08:47
--- NOTE | 2016-09-30 08:53 | HHI.PR ---
Subjective Remarks Follow-up for multiple medical complaints. The patient is seen using [employer] translation services, however the [employer] director employee safety and health told me that she could not be of any further help after extensive interview with the patient, because the patient would not converse with the bilingual secretary. The patient is a poor historian. She has multiple medical complaints including headache, back pain, complaining of dizziness while she sleeps, feeling like she is going to whenever she goes to sleep. She does not answer when asked about chest pain or shortness of breath. She does not answer orientation questions when asked. She states that she has no one to take care of her and is repeatedly asking for help. Objective Vitals Vital Signs Date Time Temp Pulse Resp B/P Pulse Ox O2 Delivery O2 Flow Rate FiO2 09/30/16 07:58 64 20 164/84 100 09/30/16 05:06 98.5 50 17 140/67 100 09/30/16 00:00 98.7 59 20 161/71 100 09/29/16 20:11 98.9 55 20 133/92 98 09/29/16 18:05 58 09/29/16 16:30 96.8 49 22 187/73 100 09/29/16 12:00 96.5 50 22 181/78 95 Result Diagram: 09/29/169 09/29/16218 Imaging Last Impressions Head CT 09/29/16144 Signed Impressions: Service Date/Time: Thursday, September 29, 2016 02:28 - CONCLUSION: Unremarkable study. Mitzy Guajardo MD Chest X-Ray 09/29/16144 Signed Impressions: Service Date/Time: Thursday, September 29, 2016 01:57 - CONCLUSION: Slight cardiomegaly. Mitzy Guajardo MD Myocardial Perfusion Scan Nuc Med 09/29/16 0000 Signed Impressions: Service Date/Time: Thursday, September 29, 2016 14:45 - CONCLUSION: Normal examination. RISK CATEGORY: Low (<1%% Annual Mortality Rate) Mode Jacob MD Foot X-Ray 09/29/16 0000 Signed Impressions: Service Date/Time: Thursday, September 29, 2016 02:00 - CONCLUSION: First proximal phalangeal fracture and second metatarsal fracture. Mitzy Guajardo MD Objective Remarks GENERAL: Well-developed well-nourished. In no acute distress. Primarily Persian-speaking. SKIN: Warm and dry. No lesions noted. HEENT: Normocephalic. Pupils equal and round. Mucous membranes pink and moist. CARDIOVASCULAR: Regular rate and rhythm. No murmur appreciated. RESPIRATORY: No accessory muscle use. Clear to auscultation. Breath sounds equal bilaterally. GASTROINTESTINAL: Abdomen soft, non-tender, nondistended. Bowel sounds x4. MUSCULOSKELETAL: Right ankle splinted. No clubbing or cyanosis. No edema. NEUROLOGICAL: Awake and alert. No focal neurological deficits. Moves upper and lower extremities spontaneously. Rapid speech. PSYCHIATRIC: Labile mood and affect; insight and judgment appears fair to poor. A/P Assessment and Plan 70 year old female with a past history of HTN, DM, HLD, depression who presented for multiple medical complaints Chest pain with minimally elevated troponin: Admitted from [facility] pain [facility] for cardiology evaluation. The patient was seen by Dr. Diertich, discussed with. Nuclear stress test showed no ischemia. Telemetry monitoring shows sinus bradycardia especially while sleeping, no arrhythmias. Cleared by cardiology for discharge. Continue aspirin. Mood disorder, unclear baseline, possible underlying dementia: Head CT reviewed and unremarkable. Laboratory workup unremarkable to date. Reconciled and resume home SSRI. Feelings of impending doom. Consult psychiatry. Check routine workup including UA, TSH, B12, RPR. Hypertension: Chronic, labile. Continue enalapril and amlodipine. IV Vasotec as needed. Hypothyroidism: Chronic. Check TSH. Continue levothyroxine. Diabetes mellitus: Chronic. Continue home. Glipizide. Monitor Accu-Cheks. Cover with SSI. Right first phalangeal and second metatarsal fracture: Recent fall last week. Uses a walker for ambulation. PT eval. Outpatient podiatry evaluation. Discharge Planning Patient concerned about care as outpatient; consult palliative care, social media marketer, and case management. Medically clear for discharge at this time pending a safe discharge plan. Colin Monahan September 30, 2016 08:53
[2016-09-30] MEDS ORDERED: PIOGLITAZONE HCL 45 MG TAB PO SCH (09:00)
[2016-09-30] MEDS: ENALAPRIL MALEATE 10 MG TAB PO SCH ×2 (09:15→22:26)
[2016-09-30] MEDS: FAMOTIDINE 20 MG TAB PO SCH (09:15)
[2016-09-30] MEDS: GABAPENTIN 300 MG CAP PO SCH ×3 (09:15→17:36)
[2016-09-30] MEDS: PANTOPRAZOLE SOD 20 MG DELAYED RELEASE TAB PO SCH (09:15)
[2016-09-30] MEDS: ASPIRIN 81 MG CHEW TAB CHEW SCH (09:15)
--- NOTE | 2016-09-30 10:52 | HHI.HCPN ---
Palliative care consulted for clarifications on goals of care and assistance with 7th grade social studies teacher. Seen patient in ED room, she was sitting up in bed eating breakfast. Patient is Montenegrin speaker only, no airline radio operator use as with both speaks fluent Montenegrin. Patient is a poor historian, verbal but very difficult to follow in a conversation secondary to tangential speech. At times making no sense. She reports being originally from [place], she tells me that prior to these ED visit she was residing alone in her condo with turtles and plush animals. She reports having family members, Bernardo who is a nephew and Tahira who is her niece. Unable to provide any other information such as additional names or contact numbers of family members or close friends. Case discussed with JULIA Ceja. Psychiatry consult pending which appears appropriate. Palliative care currently unable to assist with goals of care clarification. Case discussed with briefcase sewer. Palliative care to assist with locating family members. Recommended running [employer] report. Palliative care to follow-up as needed. LIANG Delgado. . (Celsa Castaneda) Currently working on attempting to find family and patient is unable to provide information, psych consult pending. Spoke with and requested an accurant report. Review of medical records and google search indicate the following contacts: -Bettina Ruiz, friend in EMR: [phone] (wrong number) -Jimbo Nice, spouse: google search indicates patient is . # (disconnected). -Connie Fall: [phone] (disconnected) -Jason Jackson (Pat??) or Denilson: [phone] and [phone] ( disconnected) -Desiree Orona: [phone] (just rings) and [phone] (wrong number) -Junior Stewart: [phone] (disconnected), (wrong number), (just rings), and [phone] (disconnected) -Nel Meraz or [place]: [phone] or [phone]-- left VM at both, awaiting call back. Received call from CM, [employer] report shows lyndsay Hayes (lyndsay) . Number attempted and just rings. Will continue to try, recommend CM also attempt to try. Spoke with nurse. Reports last night patient had multiple visitors, no names or numbers obtained. No additional names and numbers on paper chart. Requested obtaining names and contacts of visitors and provided palliative care number. 4pm-- spoke with patient's PCP obtained contact information: Bernardo Oreilly ( lyndsay) #[phone]. Requested update contact information in EMR. Palliative care able to speak with him. He reports he is the only family available. Patient has been living independently for many year and making her own medical decisions for many years. He reports he works many hours of the day and is unable to care for Ms. Oreilly. Placed called to psychiatry Dr. Alba. Requested revisit for capacity and patient's ability to make her own decisions ( placement vs safe return to independent living). Pending follow-up after this evaluation. (Felicia Wray, DOWEL INSERTING MACHINE OPERATOR) . Chart reviewed. Case discussed with palliative care NATURALIST. Above NATURALIST note reviewed and I concur. . (Tod Dill MD) Celsa Castaneda September 30, 2016 10:52 Felicia Wray, DOWEL INSERTING MACHINE OPERATOR September 30, 2016 11:32 Tod Dill MD October 05, 2016 16:34
--- NOTE | 2016-09-30 12:44 | EC ---
Study Study Date:09/30/2016 STUDY CONCLUSIONS SUMMARY - Left ventricle: The cavity size was normal. Wall thickness was normal. Systolic function was normal. The estimated ejection fraction was in the range of 55% to 60%. Wall motion was normal; there were no regional wall motion abnormalities. - Aortic valve: Valve area: 1.62cm^2(VTI). Valve area: 1.36cm^2 (Vmax). - Mitral valve: Mild regurgitation. - Tricuspid valve: Mild regurgitation. - Pulmonary arteries: PA peak pressure: 38mm Hg (S). If LV function is below 40, please consider prescribing an ACEI or ARB or document rationale for non-use. PROCEDURE DATA STUDY STATUS: Elective. Procedure: Transthoracic echocardiography. Image quality was good. Scanning was performed from the parasternal, apical, and subcostal acoustic windows. Study completion: The patient tolerated the procedure well. Transthoracic echocardiography. M-mode, complete 2D, complete spectral Doppler, and color Doppler. Height: Height: 62in. Weight: Weight: 219.5lb. Body mass index: BMI: 40.2kg/m^2. Body surface area: BSA: 1.99m^2. Patient status: Inpatient. CARDIAC ANATOMY LEFT VENTRICLE: The cavity size was normal. Wall thickness was normal. Systolic function was normal. The estimated ejection fraction was in the range of 55% to 60%. Wall motion was normal; there were no regional wall motion abnormalities. AORTIC VALVE: Trileaflet; normal thickness leaflets. Doppler: Transvalvular velocity was within the normal range. There was no stenosis. No regurgitation. Valve area: 1.62cm^2(VTI). Indexed valve area: 0.81cm^2/m^2 (VTI). Valve area: 1.36cm^2 (Vmax). Indexed valve area: 0.68cm^2/m^2 (Vmax). Mean gradient: 7mm Hg (S). Peak gradient: 13mm Hg (S). AORTA: Aortic root: The aortic root was normal in size. MITRAL VALVE: Structurally normal valve. Doppler: Transvalvular velocity was within the normal range. There was no evidence for stenosis. Mild regurgitation. Peak gradient: 4mm Hg (D). LEFT ATRIUM: The atrium was normal in size. RIGHT VENTRICLE: The cavity size was normal. Wall thickness was normal. PULMONIC VALVE: Doppler: Transvalvular velocity was within the normal range. There was no evidence for stenosis. No regurgitation. TRICUSPID VALVE: Structurally normal valve. Doppler: Transvalvular velocity was within the normal range. Mild regurgitation. PULMONARY ARTERY: Systolic pressure was at the upper limits of normal. RIGHT ATRIUM: The atrium was normal in size. PERICARDIUM: There was no pericardial effusion. SYSTEMIC VEINS: Inferior vena cava: The vessel was normal in size. Patient weight: 219.5lb _Ejection fraction:_ 65-75% _Fractional shortening:_ 32% up to 5Kg 5-11.5Kg 11.6-22.9Kg 23-45Kg 45-57Kg Aortic Root 7-13 <17 13-22 17-27 17-27 LA diam 6-13 <23 24-38 33-47 37-40 RVID 10-17 7-15 7-15 7-18 8-17 LVIDd 12-22 <32 24-38 33-47 37-40 LVPW 2-4 3-6 5-7 6-8 7-8 IVS 2-4 3-6 5-7 6-8 7-8 BASIC MEASUREMENTS ADULT NORMAL Left ventricle LV internal dimension, ED, chordal 45.9 mm 43-52 level, PLAX LV internal dimension, ES, chordal 30.6 mm 23-38 level, PLAX Fractional shortening, chordal level, 33 % >29 PLAX LV posterior wall thickness, ED 13 mm IVS/LVPW ratio, ED 1 <1.3 Ventricular septum Septal thickness, ED 13 mm Aortic valve Leaflet separation 20 mm 15-26 Aorta Root diameter, ED 30 mm Left atrium Anterior-posterior dimension 35 mm Anterior-posterior dimension index 1.76 cm/m^2 <2.2 BASIC MEASUREMENTS ADULT NORMAL Aortic valve Leaflet separation 20 mm 15-26 DOPPLER MEASUREMENTS ADULT NORMAL Main pulmonary artery Pressure, S *38 mm Hg =30 Aortic valve Peak velocity, S 181 cm/s Mean velocity, S 127 cm/s VTI, S 42.3 cm Mean gradient, S 7 mm Hg Peak gradient, S 13 mm Hg Valve area, VTI 1.62 cm^2 Valve area index, VTI 0.81 cm^2/m^2 Valve area, Vmax 1.36 cm^2 Valve area index, Vmax 0.68 cm^2/m^2 Mitral valve Peak E-wave velocity 106 cm/s Peak A-wave velocity 113 cm/s Deceleration time 187 ms 150-230 Peak gradient, D 4 mm Hg Peak E/A ratio 0.9 Tricuspid valve Regurgitant peak velocity 273 cm/s Peak RV-RA gradient, S 30 mm Hg Maximal regurgitant velocity 273 cm/s Systemic veins Estimated CVP 10 mm Hg Right ventricle RV pressure, S *40 mm Hg <30 Pulmonic valve Peak velocity, S 69.9 cm/s LEGEND: Mean values are shown as u=mean value. Asterisk (*) hartman values outside specified normal range. Prepared and signed by Markos Harrison [id number]
--- NOTE | 2016-09-30 14:55 | PD.CONS ---
Provisional Diagnosis Admission Date September 29, 2016 at 03:21 [place] I. Delirium due to underlying medical condition, history of depression [place] II. Deferred [place] III. Hypertension, hypothyroidism, chest pain, GERD [place] IV. Poor family support [place] V. 50 History of Present Illness Service Psychiatry Consult Requested By Primary Care Physician Shilo BARRAGAN The patient is a 70-year-old [place] woman, domiciled alone, single, with psychiatric history of depression, no previous psychiatric hospitalizations, no previous suicidal attempts, she is on Paxil, fluoxetine, trazodone given by unknown prescriber, with pertinent history of hypertension, diabetes, and hyperlipidemia presents to emergency room for further evaluation of chest pain. Patient is from [place] and speaks Syrian. Patient came to the hospital for evaluation of chest pain, she is admitted by cardiology for further evaluation. Consulted to psychiatry due to bizarre behavior. On psychiatric evaluation patient is calm, cooperative and pleasant. She is kind of poor historian, disorganized at times, very hard of hearing which may very difficult the communication, but redirectable. The psychiatric assessment was performed in her primary language is Syrian. But, I have to clarify, that she is illiterate which make a potential communication by writing impossible. However , patient says that she is happy, she is getting because she was having chest pain. She describes her mood as very good, she denies depressive symptoms, she says that she is a happy person. She denies suicidal or homicidal ideation, she denies visual and auditory hallucinations. Patient says that she lives along in [facility], she has a daughter and other family members, but she has poor contact with them. She gave me to telephone numbers, but I could not get in contact with her family members. Patient becomes disorganized during the evaluation, she is oriented in place, but disoriented in time. She can repeat 3 words, but will not remember 5 minutes later. Mini-Mental status is difficult due illiteracy. Review of Systems Constitutional: DENIES: Diaphoretic episodes, Fatigue, Fever, Weight gain, Weight loss, Chills, Dizziness, Change in appetite, Night Sweats Endocrine: DENIES: Abnorml menstrual pattern, Heat/cold intolerance, Polydipsia , Polyuria, Polyphagia Eyes: DENIES: Blurred vision, Diplopia, Eye inflammation, Eye pain, Vision loss , Photosensitivity, Double Vision Cardiovascular: COMPLAINS OF: Chest pain Gastrointestinal: DENIES: Abdominal pain, Black stools, Bloody stools, Constipation, Diarrhea, Nausea, Vomiting, Difficulty Swallowing, Anorexia Genitourinary: DENIES: Abnormal vaginal bleeding, Dysmenorrhea, Dyspareunia, Sexual dysfunction, Urinary frequency, Urinary incontinence, Urgency, Hematuria , Dysuria, Nocturia, Vaginal discharge Musculoskeletal: DENIES: Joint pain, Muscle aches, Stiffness, Joint Swelling, Back pain, Neck pain Integumentary: DENIES: Abnormal pigmentation, Pruritus, Rash, Nail changes, Breast masses, Breast skin changes, Nipple discharge Hematologic/lymphatic: DENIES: Bruising, Lymphadenopathy Immunologic/allergic: DENIES: Eczema, Urticaria Neurologic: DENIES: Abnormal gait, Headache, Localized weakness, Paresthesias, Seizures, Speech Problems, Tremor, Poor Balance Psychiatric: DENIES: Anxiety, Confusion, Mood changes, Depression, Hallucinations, Agitation, Suicidal Ideation, Homicidal Ideation, Delusions Past Family Social History Coded Allergies: No Known Allergies (Verified , 09/29/16) Reported Medications Fluoxetine 60 Mg Tab60 Mg PO DAILY #30 TAB Ref 0 09/29/16 Amlodipine 10 Mg Tab10 Mg PO DAILY #30 TAB Ref 0 09/29/16 Gabapentin 300 Mg [id number] Mg PO TID #90 CAP Ref 0 09/29/16 Paroxetine 40 Mg Tab40 Mg PO DAILY #30 TAB Ref 0 09/29/16 Omeprazole 20 Mg Tab20 Mg PO DAILY #30 TAB Ref 0 09/29/16 Levothyroxine 50 Mcg Tab50 Mcg PO DAILY #30 TAB Ref 0 09/29/16 Ranitidine 150 Mg Avm067 Mg PO DAILY #30 TAB Ref 0 09/29/16 Sertraline 50 Mg Tab50 Mg PO DAILY #30 TAB Ref 0 09/29/16 Cyanocobalamin (Vitamin B-12)1,000 Mcg Tab1,000 Mcg PO DAILY #1 BOTTLE Ref 0 09/29/16 Pioglitazone 45 Mg Tab45 Mg PO DAILY #30 TAB Ref 0 09/29/16 Trazodone 100 Mg [id number] Mg PO HS #30 TAB Ref 0 09/29/16 Enalapril 20 Mg Tab20 Mg PO DAILY #30 TAB Ref 0 09/29/16 Atorvastatin 10 Mg Tab10 Mg PO HS #30 TAB Ref 0 09/29/16 Naproxen 250 Mg Geh145 Mg PO ONCE #60 TAB Ref 0 09/29/16 Discontinued Reported Medications Hydrocodone-Acetaminophen (Lortab 5/500)5 Mg/500 Mg Tab1 Tab PO Q6HPRN #20 02/12/11 Furosemide 40 Mg Tab40 Mg PO DAILY 02/09/11 Levothyroxine Sodium (Levothroid)300 Mcg [id number] Mcg PO DAILY 02/12/11 Escitalopram Oxalate (Lexapro)20 Mg Tab10 Mg PO DAILY 02/12/11 Escitalopram Oxalate (Lexapro)20 Mg Tab20 Mg PO DAILY 02/09/11 Ranitidine Hcl (Zantac)150 Mg Cqq791 Mg PO BID 02/12/11 Simvastatin (Zocor 40 mg)40 Mg Tab40 Mg PO HS 02/12/11 Ibuprofen (Motrin)400 Mg Slz565 Mg PO BID 02/12/11 Pioglitazone Hcl (Actos 45 mg)45 Mg Tab45 Mg PO DAILY 02/12/11 Nifedipine (Procardia Xl)30 Mg Tabcr30 Mg PO DAILY 02/12/11 Enalapril Maleate (Vasotec)20 Mg Tab20 Mg PO DAILY 02/12/11 Hydroxyzine Pamoate (Vistaril)25 Mg Cap25 Mg PO DAILY 02/12/11 Discontinued Scripts [Mri Of (R) Knee] No Conflict Check Ref 0 MRI of R. Knee Prov:ISAAC BAI M.D. 04/25/06 Current Medications Medications (Trade) Dose Ordered Sig/Alissa Route Start Time Stop Time Status Last Admin (NS Flush) 2 ml UNSCH PRN IVF 09/29/16 01:45 (Norvasc) 10 mg DAILY PO 09/29/16 10:00 09/30/16 09:15 (Lipitor) 10 mg HS PO 09/29/16 21:00 09/29/16 20:45 (Neurontin) 300 mg TID PO 09/29/16 13:00 09/30/16 12:19 (Synthroid) 50 mcg DAILY@0600 PO 09/29/16 10:45 09/30/16 04:50 (Protonix) 20 mg DAILY PO 09/29/16 10:45 09/30/16 09:15 (D50w (Vial) Inj) 50 ml UNSCH PRN IV 09/29/16 12:30 (Glucagon Inj) 1 mg UNSCH PRN OTHER 09/29/16 12:30 (Vasotec Inj) 1.25 mg Q8H PRN IV PUSH 09/29/16 13:15 09/29/16 17:03 (Aspirin Chew) 81 mg DAILY CHEW 09/29/16 14:30 09/30/16 09:15 (Vasotec) 20 mg BID PO 09/29/16 21:00 09/30/16 09:15 (Tylenol) 500 mg Q4H PRN PO 09/30/16 00:30 09/30/16 04:50 (Actos) 45 mg DAILY PO 09/30/16 09:00 09/30/16 09:16 (Pepcid) 20 mg DAILY PO 09/30/16 09:00 09/30/16 09:15 (Desyrel) 100 mg HS PO 09/30/16 21:00 Family History Patient denies psychiatric family history Social History Patient was born and raised in [place], she lives alone in [place], she is unemployed, single, she did not go to school Physical Exam A physical exam, no psychomotor agitation or retardation, no EPS, no stiffness, no tremors present Vital Signs Vital Signs Date Time Temp Pulse Resp B/P Pulse Ox O2 Delivery O2 Flow Rate FiO2 09/30/16 12:00 97.7 60 19 133/63 100 09/29/16 04:28 Room Air Lab Results Test 09/29/16 09/29/16 02:19 05:08 White Blood Count 6.4 Red Blood Count 4.46 Hemoglobin 12.0 Hematocrit 37.4 Mean Corpuscular Volume 83.8 Mean Corpuscular Hemoglobin 27.0 Mean Corpuscular Hemoglobin 32.2 Concent Red Cell Distribution Width 15.5 Platelet Count 192 Mean Platelet Volume 9.1 Neutrophils (%) (Auto) 47.1 Lymphocytes (%) (Auto) 41.3 Monocytes (%) (Auto) 8.6 Eosinophils (%) (Auto) 1.9 Basophils (%) (Auto) 1.1 Neutrophils # (Auto) 3.0 Lymphocytes # (Auto) 2.6 Monocytes # (Auto) 0.5 Eosinophils # (Auto) 0.1 Basophils # (Auto) 0.1 CBC Comment DIFF FINAL Differential Comment Prothrombin Time 11.1 Prothromb Time International 1.0 Ratio Activated Partial 28.7 Thromboplast Time Sodium Level 142 Potassium Level 3.6 Chloride Level 106 Carbon Dioxide Level 26.3 Anion Gap 10 Blood Urea Nitrogen 13 Creatinine 0.71 Estimat Glomerular Filtration 98 Rate Random Glucose 80 Calcium Level 8.9 Magnesium Level 1.8 Total Bilirubin 0.3 Aspartate Amino Transf 25 (AST/SGOT) Alanine Aminotransferase 21 (ALT/SGPT) Alkaline Phosphatase 115 Total Creatine Kinase 270 230 Creatine Kinase MB 1.2 1.3 Creatine Kinase MB % 0.4 0.6 Troponin I 0.03 0.06 B-Type Natriuretic Peptide 58 Total Protein 7.7 Albumin 3.[address] 09/29/16144 Signed Impressions: Service Date/Time: Thursday, September 29, 2016 02:28 - CONCLUSION: Unremarkable study. Mitzy Guajardo MD Chest X-Ray 09/29/16144 Signed Impressions: Service Date/Time: Thursday, September 29, 2016 01:57 - CONCLUSION: Slight cardiomegaly. Mitzy Guajardo MD Myocardial Perfusion Scan Nuc Med 09/29/16 0000 Signed Impressions: Service Date/Time: Thursday, September 29, 2016 14:45 - CONCLUSION: Normal examination. RISK CATEGORY: Low (<1%% Annual Mortality Rate) Mode Jacob MD Foot X-Ray 09/29/16 0000 Signed Impressions: Service Date/Time: Thursday, September 29, 2016 02:00 - CONCLUSION: First proximal phalangeal fracture and second metatarsal fracture. Mitzy Guajardo MD Mental Status Examination Appearance Overweight woman, very long and colorful hand nails, regular street clothes, good hygiene, calm and superficially cooperative Speech: Rapid Orientation: Person, Place Memory: Impaired (describe) Thought Process: Loose Association Thought Content: Unremarkable Hallucination Type: None Attention and Concentration: Good Suicidal Ideation: No Homicidal Ideation: No Previous Homicide Attempts: No Judgment: WNL Affect: Good Mood: Appropriate Motor Activity: Normal gait Assessment & Plan Problem List: (1) Mild neurocognitive disorder Assessment & Plan: On psychiatric evaluation today patient does not have any evidence of depression, anxiety, airam or acute psychosis. Patient denies suicidal and homicidal ideation, she denies visual and auditory hallucinations. However, patient seems to be a little bit disorganized, the communication with her could become quite difficult because she is hard of hearing, evening in Syrian I had to put a lot of attention to understand her because her [place] accent is quite challenging. Patient is oriented in place, disoriented in time , with impaired recent and immediate recall, she is unable to remember 3 words in 5 minutes. A very thorough cognitive assessment was not possible because patient is illiterate. But, cognitive impairment is evident in this patient, most probably the patient is demented. I do not see any reason to Mena act the patient and admit her in psychiatry. My impression is that we have to involve palliative care and social workers in order to create a safe discharge plan. No psychotropics are indicated at this moment. Will follow up. ICD Code: G31.84 Assessment & Plan Estimated LOS: Franklyn Dejesus MD September 30, 2016 14:55
[2016-09-30 16:38] LABS: BACTERIA, URINE RARE /hpf; BLOOD, URINE NEG (NEG); COMMENT (UR) CULT NOT INDICATED; CULTURE IF INDICATED CULT NOT INDICATED; GLUCOSE,URINE NEG (NEG); KETONE, URINE NEG (NEG); MUCUS URINE FEW /lpf (OCC); NITRITE,URINE NEG (NEG); PH, URINE 5.5 (5.0-8.5); SQUAMOUS EPITHELIAL CELL URINE 1 /hpf (0-5); URINE COLOR YELLOW (YELLW/STRAW)
[2016-09-30] MEDS ORDERED: traZODone HCL 100 MG TAB PO SCH (21:00)
[2016-09-30 21:12] LABS: HEMOGLOBIN A1a 0.8 %; HEMOGLOBIN A1b 0.8 %; HEMOGLOBIN Ao 84.6 %; HEMOGLOBIN LA1C 2.1 %; HEMOGLOBIN P3 3.6 %
[2016-09-30] MEDS: ATORVASTATIN 10 MG TAB PO SCH (22:26)
[2016-10-01] MEDS: ACETAMINOPHEN 500 MG CPLT PO PRN ×2 (02:34→06:33)
[2016-10-01 04:07] VITALS: BP 131/66; PULSE 74; RESP 18; TEMP 97.8; O2SAT 97
[2016-10-01] MEDS: INSULIN ASPART SUPPLEMENTAL SCALE SQ SCH (06:00)
[2016-10-01] MEDS: LEVOTHYROXINE SODIUM 50 MCG TAB PO SCH (06:20)
[2016-10-01 08:00] VITALS: BP 129/63; PULSE 57; RESP 19; TEMP 98.1; O2SAT 100
[2016-10-01] MEDS: GABAPENTIN 300 MG CAP PO SCH (08:15)
[2016-10-01] MEDS: ASPIRIN 81 MG CHEW TAB CHEW SCH (08:15)
[2016-10-01] MEDS: ENALAPRIL MALEATE 10 MG TAB PO SCH (08:15)
[2016-10-01] MEDS: PANTOPRAZOLE SOD 20 MG DELAYED RELEASE TAB PO SCH (08:15)
[2016-10-01] MEDS: FAMOTIDINE 20 MG TAB PO SCH (08:15)
--- NOTE | 2016-10-01 11:46 | HHI.PR ---
Subjective Remarks Discuss with case management, patient refused placement yesterday. Patient seen in follow-up with psychiatrist, Dr. Alba, who does communicate with the patient in Guyanese. The patient is afraid that she will have to stay in the hospital. She has good family and friend support at home. She ambulates well and manages her hygiene and ADLs. She does use a walker. She does have follow-up with her physicians. She does manage her medications. She does have problems with hearing. She is asking for extra help at home and is happy to have home health nursing. She does have some back discomfort today, happy with acetaminophen. She verbalizes understanding of the need to see her PCP next week regarding follow-up for this hospitalization. Objective Vitals Vital Signs Date Time Temp Pulse Resp B/P Pulse Ox O2 Delivery O2 Flow Rate FiO2 10/01/16 08:00 98.1 57 19 129/63 100 10/01/16 07:33 18 10/01/16 04:07 97.8 74 18 131/66 97 09/30/16 23:25 97.9 53 16 120/69 92 09/30/16 21:00 93 Nasal Cannula 3.00 09/30/16 20:07 98.0 52 20 135/65 100 09/30/16 20:00 55 09/30/16 16:03 97.9 53 19 125/58 100 09/30/16 12:00 97.7 60 19 133/63 100 Result Diagram: 09/29/1621809/29/16218 Imaging Last Impressions Head CT 09/29/16144 Signed Impressions: Service Date/Time: Thursday, September 29, 2016 02:28 - CONCLUSION: Unremarkable study. Mitzy Guajardo MD Chest X-Ray 09/29/16144 Signed Impressions: Service Date/Time: Thursday, September 29, 2016 01:57 - CONCLUSION: Slight cardiomegaly. Mitzy Guajardo MD Myocardial Perfusion Scan Nuc Med 09/29/16 0000 Signed Impressions: Service Date/Time: Thursday, September 29, 2016 14:45 - CONCLUSION: Normal examination. RISK CATEGORY: Low (<1%% Annual Mortality Rate) Mode Jacob MD Foot X-Ray 09/29/16 Signed Impressions: Service Date/Time: Thursday, September 29, 2016 02:00 - CONCLUSION: First proximal phalangeal fracture and second metatarsal fracture. Mitzy Guajardo MD Objective Remarks GENERAL: Well-developed well-nourished. In no acute distress. Primarily Guyanese-speaking. Extremely hard of hearing. SKIN: Warm and dry. No lesions noted. HEENT: Normocephalic. Pupils equal and round. Mucous membranes pink and moist. CARDIOVASCULAR: Regular rate and rhythm. No murmur appreciated. RESPIRATORY: No accessory muscle use. Clear to auscultation. Breath sounds equal bilaterally. GASTROINTESTINAL: Abdomen soft, non-tender, nondistended. Bowel sounds x4. MUSCULOSKELETAL: Right ankle splinted. No clubbing or cyanosis. No edema. NEUROLOGICAL: Awake and alert. No focal neurological deficits. Moves upper and lower extremities spontaneously. Normal speech. PSYCHIATRIC: Histrionic but pleasant mood and affect; insight and judgment appears to be fair. A/P Assessment and Plan 70 year old female with a past history of HTN, DM, HLD, depression who presented for multiple medical complaints Chest pain with minimally elevated troponin: Admitted from chest pain Center for cardiology evaluation. The patient was seen by Dr. Dietrich, discussed with. Nuclear stress test showed no ischemia. Telemetry monitoring shows sinus bradycardia especially while sleeping, no arrhythmias. Cleared by cardiology for discharge. Continue aspirin. Mood disorder, unclear baseline, possible underlying mild dementia: Head CT reviewed and unremarkable. Laboratory workup unremarkable to date. Consulted psychiatry, appreciate input from Dr Alba. The patient has communication difficulties more than anything, with uncommon Guyanese dialect as well as hard of hearing. She does have a histrionic mood which psychiatrist feels is more cultural. She is illiterate which makes cognitive evaluation unreliable, but her insight seems to be fair and she seems well taken care of; psychiatry is in agreement that the patient is in no danger to herself for discharge home. Checked routine workup including UA, TSH, B12 which were within normal limits. Hypertension: Chronic, labile. Continue enalapril and amlodipine. Hypothyroidism: Chronic. TSH within normal limits. Continue levothyroxine. Diabetes mellitus: Chronic. Hemoglobin A1c 6.0 and blood glucoses are borderline hypoglycemic. DC home Actos, and recommend diabetic diet with outpatient monitoring with PCP. Right first phalangeal and second metatarsal fracture: Recent fall last week. Continue splint. Uses a walker for ambulation. PT consulted, recommends HHC, case management to arrange. Outpatient podiatry evaluation. Patient verbalizes understanding. Positive RPR: Incidental finding. Follow-up with PCP for TP-PA. Recommend treatment with doxycycline, RN to confirm patient's pharmacy. Discharge Planning Discharge patient to home Condition on discharge: Improved Diabetic Diet as tolerated Regular activity Rx written: Doxycycline, aspirin Follow-up with primary care physician and podiatry Colin Monahan October 01, 2016 11:46
[2016-10-01] MEDS ORDERED: ASPI81CH25 CHEW (11:48)
--- NOTE | 2016-10-01 11:50 | HHI.FF ---
Face to Face Verification Diagnosis: (1) Phalanx fracture, foot (2) Chest pain (3) Mild neurocognitive disorder (4) Metatarsal stress fracture of right foot Physical Therapy Order: Evaluate and Treat, Improve ambulation, Strength and gait training Home Health Nursing Order: Medical education Signs/symptoms of disease process Medication education-adverse effect Nursing assessment with vital signs I have seen patient Carla Oreilly on 10/01/16. My clinical findings support the need for the requested home health care services because: Ltd mobility - disease progression Med compliance is questionable Limited ability to care for self Need for psychosocial assistance Impaired cognition/judgement I certify that my clinical findings support that this patient is homebound because: Impaired cognitive ability/safety Need for psychosocial assistance Colin Monahan October 01, 2016 11:50
--- NOTE | 2016-10-01 18:00 | HHI.DS ---
Discharge Summary Admission Date September 29, 2016 at 03:21 Discharge Date: October 01, 2016 Admitting Diagnosis Chest pain (1) Mild neurocognitive disorder ICD Code: G31.84 Diagnosis: Secondary (2) Metatarsal stress fracture of right foot ICD Code: M84.374A Diagnosis: Secondary (3) Phalanx fracture, foot ICD Code: S92.919A Diagnosis: Secondary (4) Chest pain ICD Code: R07.9 Diagnosis: Principal Procedures None Brief History - From Admission 70-year-old female with pertinent history of hypertension, diabetes, and hyperlipidemia presents to emergency room for further evaluation of chest pain. Patient is from [place] and speaks Beninese. Manager Of Environmental Services utilized for interview. Onset of chest pain 1 week ago. Location substernal described as severe pressure rated 5/10. Radiated to her left neck. No associated symptoms. No known precipitating or relieving factors. Patient is a poor historian. CBC/BMP: 09/29/16 0219 09/29/16218 Significant Findings Laboratory Tests Test 09/29/16 09/29/16 09/29/16 09/30/16 02:19 05:08 09:23 15:04 Monocytes (%) (Auto) 8.6 % (0.0-8.0) Total Creatine Kinase 270 U/L 230 U/L 229 U/L (26-192) (26-192) (26-192) Troponin I 0.06 NG/ML 0.07 NG/ML (0.02-0.05) (0.02-0.05) Rapid Plasma Reagin REACTIVE (NON-REACTVE) Test 09/30/16 16:23 Urine Urobilinogen 4.0 MG/DL (LESS THAN 2.0) Urine Bacteria RARE /hpf (NONE) Urine Mucus FEW /lpf (OCC) Imaging Last Impressions Head CT 09/29/16144 Signed Impressions: Service Date/Time: Thursday, September 29, 2016 02:28 - CONCLUSION: Unremarkable study. Mitzy Guajardo MD Chest X-Ray 09/29/16144 Signed Impressions: Service Date/Time: Thursday, September 29, 2016 01:57 - CONCLUSION: Slight cardiomegaly. Mitzy Guajardo MD Myocardial Perfusion Scan Nuc Med 09/29/16 0000 Signed Impressions: Service Date/Time: Thursday, September 29, 2016 14:45 - CONCLUSION: Normal examination. RISK CATEGORY: Low (<1%% Annual Mortality Rate) Mode Jacob MD Foot X-Ray 09/29/16 0000 Signed Impressions: Service Date/Time: Thursday, September 29, 2016 02:00 - CONCLUSION: First proximal phalangeal fracture and second metatarsal fracture. Mitzy Guajardo MD PE at Discharge GENERAL: Well-developed well-nourished. In no acute distress. Primarily Beninese-speaking. Extremely hard of hearing. SKIN: Warm and dry. No lesions noted. HEENT: Normocephalic. Pupils equal and round. Mucous membranes pink and moist. CARDIOVASCULAR: Regular rate and rhythm. No murmur appreciated. RESPIRATORY: No accessory muscle use. Clear to auscultation. Breath sounds equal bilaterally. GASTROINTESTINAL: Abdomen soft, non-tender, nondistended. Bowel sounds x4. MUSCULOSKELETAL: Right ankle splinted. No clubbing or cyanosis. No edema. NEUROLOGICAL: Awake and alert. No focal neurological deficits. Moves upper and lower extremities spontaneously. Normal speech. PSYCHIATRIC: Histrionic but pleasant mood and affect; insight and judgment appears to be fair. Hospital Course 70 year old female with a past history of HTN, DM, HLD, depression who presented for multiple medical complaints Chest pain with minimally elevated troponin: Admitted from chest pain Center for cardiology evaluation. The patient was seen by Dr. Dietrich, discussed with. Nuclear stress test showed no ischemia. Telemetry monitoring shows sinus bradycardia especially while sleeping, no arrhythmias. Cleared by cardiology for discharge. Continue aspirin. Mood disorder, unclear baseline, possible underlying mild dementia: Head CT reviewed and unremarkable. Laboratory workup unremarkable to date. Consulted psychiatry, appreciate input from Dr Alba. The patient has communication difficulties more than anything, with uncommon Beninese dialect, illiteracy, and hard of hearing. She does have a histrionic mood which psychiatrist feels is more cultural. She is illiterate which makes cognitive evaluation testing unreliable, however her insight appears to be fair and she seems well taken care of, with good family support; psychiatry is in agreement that the patient is in no danger to herself for discharge home. Checked routine workup including UA, TSH, B12 which were within normal limits. Diabetes mellitus: Chronic. Hemoglobin A1c 6.0 and blood glucoses are borderline hypoglycemic. DC home Actos, recommended diabetic diet with outpatient monitoring with PCP. Right first phalangeal and second metatarsal fracture: Recent fall last week. Continue splint. Uses a walker for ambulation. PT consulted, recommends HHC, case management to arrange. Outpatient podiatry evaluation. Positive RPR: Incidental finding. Follow-up with PCP for TP-PA. Prescription called to the patient's pharmacy for course of doxycycline. Pt Condition on Discharge: Stable Discharge Disposition: Disch w/ Home Health Serv Discharge Time: > 30 minutes Discharge Instructions DIET: Follow Instructions for: Diabetic Diet Activities you can perform: Regular-No Restrictions Follow up Referrals: PCP Follow-up - 1 Week with Shilo Vázquez D.o. Podiatry - 2 Weeks New Medications: Aspirin (Aspirin Low Strength) 81 Mg Chew 81 MG CHEW DAILY Blood Clot Prevention #30 EA Continued Medications: Amlodipine (Amlodipine) 10 Mg Tab 10 MG PO DAILY Blood Pressure Management #30 Ref 0 TAB Atorvastatin (Atorvastatin) 10 Mg Tab 10 MG PO HS Cholesterol Management #30 Ref 0 TAB Cyanocobalamin (Vitamin B-12) 1,000 Mcg Tab 1000 MCG PO DAILY Nutritional Supplement #1 Ref 0 BOTTLE Enalapril (Enalapril) 20 Mg Tab 20 MG PO DAILY #30 Ref 0 TAB Gabapentin (Gabapentin) 300 Mg Cap 300 MG PO TID #90 Ref 0 CAP Levothyroxine (Levothyroxine) 50 Mcg Tab 50 MCG PO DAILY Thyroid #30 Ref 0 TAB Omeprazole (Omeprazole) 20 Mg Tab 20 MG PO DAILY #30 Ref 0 TAB Ranitidine (Ranitidine) 150 Mg Tab 150 MG PO DAILY Heartburn Management #30 Ref 0 TAB Trazodone (Trazodone) 100 Mg Tab 100 MG PO HS Control Depression #30 Ref 0 TAB Discontinued Medications: Fluoxetine (Fluoxetine) 60 Mg Tab 60 MG PO DAILY #30 Ref 0 TAB Naproxen (Naproxen) 250 Mg Tab 250 MG PO ONCE #60 Ref 0 TAB Paroxetine (Paroxetine) 40 Mg Tab 40 MG PO DAILY #30 Ref 0 TAB Pioglitazone (Pioglitazone) 45 Mg Tab 45 MG PO DAILY Blood Sugar Management #30 Ref 0 TAB Sertraline (Sertraline) 50 Mg Tab 50 MG PO DAILY #30 Ref 0 TAB Colin Monahan October 01, 2016 18:00
== END 2016-10-01 13:11 | disposition home or self-care (01) ==
LOC: NEPC 01:25 → NEDA 03:21 → NEPHCDU 05:55
PROVIDERS: ADMIT Internal Medicine; ATTEND Internal Medicine
DX: R07.89 Other chest pain (principal); R79.89 Other specified abnormal findings of blood chemistry; S92.324A Nondisplaced fracture of second metatarsal bone, right foot, initial encounter for closed fracture; E03.9 Hypothyroidism, unspecified; K21.9 Gastro-esophageal reflux disease without esophagitis; E11.649 Type 2 diabetes mellitus with hypoglycemia without coma; I10 Essential (primary) hypertension; E78.5 Hyperlipidemia, unspecified; H91.90 Unspecified hearing loss, unspecified ear; G31.84 Mild cognitive impairment of uncertain or unknown etiology; J45.909 Unspecified asthma, uncomplicated; Z72.0 Tobacco use; W19.XXXA Unspecified fall, initial encounter; Z86.73 Personal history of transient ischemic attack (TIA), and cerebral infarction without residual deficits
CPT/HCPCS: 29515; 70450; 71010; 73630; 78452; 80053; 81001; 82550; 82552; 82607; 82948; 83036; 83690; 83735; 83880; 84443; 84484; 85025; 85610; 85730; 86592; 93005; 93017; 93306; 96360; 97162; 99285; A9502; G0378; G8987; G8988; J1885; J2785; J7040